=== PATIENT | male | born 1950 | race Caucasian/White ===

== ENCOUNTER 2017-01-03 10:01 | Outpatient (CLI) | payer MEDICARE ==
[2017-01-03 11:11] LABS: Anion Gap 21 mmol/L (10-20); BUN (Urea Nitrogen) 19 mg/dL (8.4-25.7); Calc. Creatinine Clearance 0 mL/min (70-130); Calcium 9.1 mg/dL (7.8-10.44); Carbon Dioxide 22 mmol/L (23-31); Chloride 104 mmol/L (98-107); Estimated GFR-MDRD 43; Potassium 3.7 mmol/L (3.5-5.1); Sodium 143 mmol/L (136-145)
[2017-01-03 11:20] LABS: Glucose 154 mg/dL (80-115)
--- NOTE | 2017-01-03 11:53 | ULT ---
RENAL ULTRASOUND: COMPARISON: None. HISTORY: Chronic kidney disease with large body habitus. TECHNIQUE: Multiplanar, whittaker scale, and color Doppler images were obtained on renal ultrasound. FINDINGS: There is a cyst in the inferior/lateral aspect of the left kidney measures 2.9 cm in size. Both kid neys demonstrate normal cortical echogenicity without hydronephrosis or calculi. The kidneys measur e 9.9 and 10.4 cm in length on the right and left, respectively. Limited visualization of the urina ry bladder is unremarkable. IMPRESSION: Left renal cyst. POS: [facility]
[2017-01-03 17:36] LABS: Creatinine, Urine 89.68 mg/dL (63-166)
== END 2017-01-03 10:02 | disposition home or self-care (01) ==
LOC: MADLAB 10:01
PROVIDERS: ATTEND Internal Medicine Nephrology
DX: N18.3 Chronic kidney disease, stage 3 (moderate) (principal); N28.1 Cyst of kidney, acquired
CPT/HCPCS: 36415; 76770; 80048; 82570; 84156

== ENCOUNTER 2017-01-23 11:32 | Outpatient (CLI) | payer MEDICARE ==
[2017-01-23 12:45] LABS: Anion Gap 15 mmol/L (10-20); BUN (Urea Nitrogen) 20 mg/dL (8.4-25.7); Calc. Creatinine Clearance 0 mL/min (70-130); Calcium 8.7 mg/dL (7.8-10.44); Carbon Dioxide 26 mmol/L (23-31); Chloride 106 mmol/L (98-107); Estimated GFR-MDRD 51; Glucose 171 mg/dL (80-115); Potassium 4.2 mmol/L (3.5-5.1); Sodium 143 mmol/L (136-145)
== END 2017-01-23 11:33 | disposition home or self-care (01) ==
LOC: MADLAB 11:32
PROVIDERS: ATTEND Internal Medicine Nephrology
DX: N18.3 Chronic kidney disease, stage 3 (moderate) (principal)
CPT/HCPCS: 36415; 80048

== ENCOUNTER 2017-03-24 15:14 | Emergency (ER) | payer MEDICARE | END 2017-03-24 16:02 | disposition home or self-care (01) | LOC: MADERS 15:14 | DX: S61.203D Unspecified open wound of left middle finger without damage to nail, subsequent encounter (principal); E78.00 Pure hypercholesterolemia, unspecified; I48.91 Unspecified atrial fibrillation; E11.9 Type 2 diabetes mellitus without complications; F41.9 Anxiety disorder, unspecified; W26.9XXA Contact with unspecified sharp object(s), initial encounter | CPT/HCPCS: 99283 ==

== ENCOUNTER 2020-01-02 15:41 | Emergency (ER) | payer MEDICARE ==
[2020-01-02] MEDS ORDERED: Lidocaine 1% 20 ML MDV ONE (16:06)
[2020-01-02] MEDS ORDERED: Boostrix 0.5 ML (Tdap) VIAL ONE (17:01)
[2020-01-02] MEDS ORDERED: Amoxicillin/Potassium Clav 875 MG TAB ONE (17:15)
== END 2020-01-02 17:25 | disposition home or self-care (01) ==
LOC: MADERS 15:41
DX: S61.210A Laceration without foreign body of right index finger without damage to nail, initial encounter (principal); E78.00 Pure hypercholesterolemia, unspecified; I48.91 Unspecified atrial fibrillation; E11.9 Type 2 diabetes mellitus without complications; F41.9 Anxiety disorder, unspecified; W26.0XXA Contact with knife, initial encounter
CPT/HCPCS: 12002; 90471; 90715

== ENCOUNTER 2020-07-13 23:46 | Emergency (ER) | payer MEDICARE ==
[2020-07-14] MEDS ORDERED: Morphine 4 MG/ML VIAL ONE (00:23)
[2020-07-14 00:56] LABS: #Basophils 0.1 thou/uL (0.0-0.2); #Eosinphils 0.2 thou/uL (0.0-0.7); #Lymphocytes 2.4 thou/uL (1.20-3.40); #Monocytes 0.4 thou/uL (0.11-0.59); #Neutrophils 5.8 thou/uL (1.40-6.50); %Basophils 0.7 % (0.0-1.0); %Eosinophils 2.3 % (0.0-10.0); %Lymphocytes 26.8 % (21.0-51.0); %Monocytes 4.5 % (0.0-10.0); %Neutrophils 65.8 % (42.0-75.0); Hemoglobin 11.8 g/dL (14.0-18.0); Mean Corpuscular Hemoglobin 27.8 pg (27.0-31.0); Mean Corpuscular Volume 92.7 fL (78.0-98.0); Platelet Count 116 thou/uL (130-400); Platelet Morphology Comment Appears Adequate; RBC Distribution Width 15.5 % (11.5-14.5); RBC Morphology Normal; Red Blood Cell (RBC) Count 4.23 mill/uL (4.70-6.10); White Blood Cell (WBC) Count 8.8 thou/uL (4.8-10.8)
[2020-07-14 01:08] LABS: ALT (SGPT) 14 U/L (8-55); AST (SGOT) 17 U/L (5-34); Albumin 3.5 g/dL (3.4-4.8); Alkaline Phosphatase 96 U/L (40-110); Anion Gap 15 mmol/L (10-20); BUN (Urea Nitrogen) 22 mg/dL (8.4-25.7); Bilirubin, Total 0.5 mg/dL (0.2-1.2); Calc. Creatinine Clearance 0 mL/min (70-130); Calcium 9.5 mg/dL (7.8-10.44); Carbon Dioxide 24 mmol/L (23-31); Chloride 104 mmol/L (98-107); Globulin 4.3 g/dL (2.4-3.5); Glucose 247 mg/dL (80-115); Potassium 4.1 mmol/L (3.5-5.1); Protein, Total 7.8 g/dL (5.8-8.1); Sodium 139 mmol/L (136-145)
[2020-07-14 01:13] LABS: Bilirubin Negative (Negative); Blood, Urine Negative (Negative); Clarity Clear (Clear); Glucose, Urine (Dipstick) 500 mg/dL (Negative); Ketone, Urine Negative (Negative); Leukocyte Negative (Negative); Nitrite Negative (Negative); Protein, Urine (Dipstick) Negative (Neg-Trace); Urobilinogen 0.2 mg/dL (Less than 2); pH, Urine 5.5 (5.0-9.0)
== END 2020-07-14 02:24 | disposition home or self-care (01) ==
LOC: MADERS 23:46
DX: K80.20 Calculus of gallbladder without cholecystitis without obstruction (principal); E78.00 Pure hypercholesterolemia, unspecified; I48.91 Unspecified atrial fibrillation; I10 Essential (primary) hypertension; E11.9 Type 2 diabetes mellitus without complications
CPT/HCPCS: 36415; 51701; 74176; 80053; 81003; 83690; 85025; 96372; J2270

== ENCOUNTER 2022-09-18 23:47 | Emergency (ER) | payer OTHER ==
[2022-09-19 00:33] LABS: #Monocytes 0.3 thou/uL (0.11-0.59); #Neutrophils 8.7 thou/uL (1.40-6.50); %Basophils 0.3 % (0.0-1.0); %Eosinophils 0.4 % (0.0-10.0); %Lymphocytes 9.6 % (21.0-51.0); %Monocytes 3.3 % (0.0-10.0); %Neutrophils 86.4 % (42.0-75.0); Hematocrit 31.4 % (42.0-52.0); Hemoglobin 10.2 g/dL (14.0-18.0); Mean Corpuscular HGB CONC 32.4 g/dL (32.0-36.0); Mean Corpuscular Hemoglobin 29.8 pg (27.0-31.0); Mean Corpuscular Volume 92.2 fl (78.0-98.0); Mean Platelet Volume 11.4 fL (7.4-10.4); Platelet Count 161 10x3/uL (130-400); RBC Distribution Width 15.4 % (11.5-14.5); Red Blood Cell (RBC) Count 3.41 mill/uL (4.70-6.10)
[2022-09-19 00:49] LABS: Prothrombin Time 111.4 sec (12.0-14.7)
[2022-09-19 00:53] LABS: ALT (SGPT) 30 U/L (8-55); AST (SGOT) 29 U/L (5-34); Albumin 3.4 g/dL (3.4-4.8); Alkaline Phosphatase 131 U/L (40-110); Anion Gap 21 mmol/L (10-20); BUN (Urea Nitrogen) 56 mg/dL (8.4-25.7); Bilirubin, Total 0.7 mg/dL (0.2-1.2); CK (CPK) 181 U/L (30-200); Calc. Creatinine Clearance 0 mL/min (70-130); Calcium 9.1 mg/dL (7.8-10.44); Carbon Dioxide 15 mmol/L (23-31); Chloride 108 mmol/L (98-107); Estimated GFR 13; Globulin 4.3 g/dL (2.4-3.5); Glucose 240 mg/dL (83-110); Magnesium 1.9 mg/dL (1.6-2.6); Potassium 4.8 mmol/L (3.5-5.1); Protein, Total 7.7 g/dL (5.8-8.1); Sodium 139 mmol/L (136-145)
[2022-09-19 01:00] LABS: INR-International Normal Ratio 14.2
[2022-09-19] MEDS ORDERED: Phytonadione 10 MG/ML AMP ONE (01:18)
[2022-09-19] MEDS ORDERED: cefTRIAXone (ROCEPHIN) 1 GM VIAL ONE ×2 (02:24→06:15)
[2022-09-19] MEDS ORDERED: Sodium Chloride 0.9% 100 ML ONE ×2 (02:25→06:15)
[2022-09-19 03:58] LABS: Clarity Cloudy (Clear)
[2022-09-19 03:59] LABS: Bilirubin Negative (Negative); Blood, Urine Moderate (Negative); Glucose, Urine (Dipstick) Negative (Negative); Ketone, Urine Negative (Negative); Leukocyte Trace (Negative); Nitrite Negative (Negative); Protein, Urine (Dipstick) Trace mg/dL (Neg-Trace); Urobilinogen 0.2 mg/dL (Less than 2)
[2022-09-19 04:00] LABS: Bacteria/HPF 3+ HPF (None Seen); CAUTI Indications for Culture Dysuria,urgency,freq; RBC/HPF Greater than 50 HPF (0-3); Squamous Epithelial 0-3 HPF (0-3)
[2022-09-19 04:01] LABS: Urine Culture Reflex Yes Yes
[2022-09-19] MEDS ORDERED: Sodium Chloride 0.9% 1,000 ML ONE ×2 (06:05→15:06)
[2022-09-19 07:22] LABS: Prothrombin Time 81.2 sec (12.0-14.7)
[2022-09-19 07:22] LABS: ALT (SGPT) 36 U/L (8-55); AST (SGOT) 56 U/L (5-34); Albumin 3.4 g/dL (3.4-4.8); Alkaline Phosphatase 127 U/L (40-110); Anion Gap 18 mmol/L (10-20); BUN (Urea Nitrogen) 55 mg/dL (8.4-25.7); Bilirubin, Total 0.5 mg/dL (0.2-1.2); Calc. Creatinine Clearance 0 mL/min (70-130); Calcium 8.8 mg/dL (7.8-10.44); Carbon Dioxide 18 mmol/L (23-31); Chloride 108 mmol/L (98-107); Estimated GFR 14; Globulin 4.3 g/dL (2.4-3.5); Glucose 163 mg/dL (83-110); Potassium 4.9 mmol/L (3.5-5.1); Protein, Total 7.7 g/dL (5.8-8.1); Sodium 139 mmol/L (136-145)
[2022-09-19 07:53] LABS: INR-International Normal Ratio 9.5
[2022-09-19 14:22] LABS: #Basophils 0.1 thou/uL (0.0-0.2); #Lymphocytes 2.4 thou/uL (1.20-3.40); #Monocytes 0.4 thou/uL (0.11-0.59); #Neutrophils 6.3 thou/uL (1.40-6.50); %Basophils 0.8 % (0.0-1.0); %Eosinophils 0.5 % (0.0-10.0); %Lymphocytes 25.9 % (21.0-51.0); %Monocytes 4.5 % (0.0-10.0); %Neutrophils 68.3 % (42.0-75.0); Hematocrit 28.1 % (42.0-52.0); Hemoglobin 9.2 g/dL (14.0-18.0); Mean Corpuscular HGB CONC 32.7 g/dL (32.0-36.0); Mean Corpuscular Hemoglobin 29.7 pg (27.0-31.0); Mean Corpuscular Volume 90.9 fl (78.0-98.0); Mean Platelet Volume 11.2 fL (7.4-10.4); Platelet Count 147 10x3/uL (130-400); RBC Distribution Width 15.8 % (11.5-14.5); Red Blood Cell (RBC) Count 3.09 mill/uL (4.70-6.10); White Blood Cell (WBC) Count 9.2 10x3/uL (4.8-10.8)
[2022-09-19 14:30] LABS: Prothrombin Time 40.5 sec (12.0-14.7)
[2022-09-19 14:39] LABS: ALT (SGPT) 38 U/L (8-55); AST (SGOT) 69 U/L (5-34); Albumin 3.3 g/dL (3.4-4.8); Alkaline Phosphatase 118 U/L (40-110); Anion Gap 18 mmol/L (10-20); BUN (Urea Nitrogen) 56 mg/dL (8.4-25.7); Bilirubin, Total 0.6 mg/dL (0.2-1.2); Calc. Creatinine Clearance 0 mL/min (70-130); Calcium 8.7 mg/dL (7.8-10.44); Carbon Dioxide 17 mmol/L (23-31); Chloride 108 mmol/L (98-107); Estimated GFR 14; Globulin 4.1 g/dL (2.4-3.5); Glucose 172 mg/dL (83-110); Potassium 5.3 mmol/L (3.5-5.1); Protein, Total 7.4 g/dL (5.8-8.1); Sodium 138 mmol/L (136-145)
[2022-09-19 15:14] LABS: Bilirubin Negative (Negative); Blood, Urine Large (Negative); Glucose, Urine (Dipstick) Negative (Negative); Ketone, Urine Trace mg/dL (Negative); Leukocyte Trace (Negative); Nitrite Negative (Negative); Protein, Urine (Dipstick) 30 mg/dL (Neg-Trace); Urobilinogen 0.2 mg/dL (Less than 2)
[2022-09-19 15:16] LABS: Clarity Hazy (Clear)
[2022-09-19 15:24] LABS: CAUTI Indications for Culture Alt mental st,lethar; RBC/HPF Greater than 50 HPF (0-3)
[2022-09-19 15:25] LABS: Bacteria/HPF 1+ HPF (None Seen); Squamous Epithelial 0-3 HPF (0-3)
== END 2022-09-19 15:31 | disposition short-term general hospital (02) ==
LOC: MADERS 23:47
DX: I95.9 Hypotension, unspecified (principal); N17.9 Acute kidney failure, unspecified; D68.9 Coagulation defect, unspecified; E86.0 Dehydration; F03.90 Unspecified dementia, unspecified severity, without behavioral disturbance, psychotic disturbance, mood disturbance, and anxiety; N39.0 Urinary tract infection, site not specified; E11.9 Type 2 diabetes mellitus without complications; E78.00 Pure hypercholesterolemia, unspecified; I10 Essential (primary) hypertension; Z87.891 Personal history of nicotine dependence; Z79.4 Long term (current) use of insulin; Z79.899 Other long term (current) drug therapy; Z79.01 Long term (current) use of anticoagulants
CPT/HCPCS: 36415; 51702; 70450; 71045; 71250; 74177; 80053; 81001; 82550; 83735; 83880; 84484; 85025; 85610; 87077; 87086; 87186; 93005; 96361; 96365; 96376; J0696; J3430; J7050